=== PATIENT | male | born 1940 | race Caucasian/White ===

== ENCOUNTER 2019-05-04 22:43 | Inpatient (IN) | payer MEDICARE ==
[~2019-05-04] VITALS: Ht 172.7 cm; Wt 78.7 kg
[~2019-05-04 22:43] MED LIST: LISINOP/HCTZ1 TA1 PO; METFORMIN1000 MG PO; NORCO1 TA2 PO
--- NOTE | 2019-05-04 23:05 | NUR ---
RT CALLED FOR SUCTIONING OF TRACH.
[2019-05-05 00:36] LABS: HEMATOCRIT 37.4 % (39.0-50.0); IMMATURE GRANULOCYTES 0.5 % (0.0-5.0); MEAN CELL VOLUME 88.8 fL CALC (80.0-100.0); MEAN CORPUSCULAR HGB 28.5 pG CALC (26.0-32.0); MEAN CORPUSCULAR HGB CONC 32.1 g/L CALC (32.0-36.0); NEUT# 4.54 thou/uL (1.82-7.42); RED BLOOD COUNT 4.21 mill/uL (4.70-6.10); RED CELL DISTRI WIDTH 17.9 % (11.5-15.5)
[2019-05-05 00:36] LABS: URINE BILIRUBIN - DIPSTICK NEGATIVE (NEGATIVE); URINE BLOOD DIPSTICK LARGE (NEGATIVE); URINE GLUCOSE - DIPSTICK NEGATIVE (NEGATIVE); URINE KETONE TRACE mg/dL (NEGATIVE); URINE NITRITE - DIPSTICK NEGATIVE (Negative); URINE PROTEIN - DIPSTICK 30 mg/dL (NEG-TRACE); URINE UROBILINOGEN - DIPSTICK 0.2 E.U./dL (0.2)
[2019-05-05 00:38] LABS: BILIRUBIN, TOTAL 1.1 mg/dL (0.0-1.4); CREATININE 1.4 mg/dL (0.7-1.3); POTASSIUM 4.8 mmol/l (3.5-5.1); TOTAL PROTEIN 7.6 g/dL (6.3-8.2)
[2019-05-05 00:39] LABS: URINE COLOR DK. YELLOW; URINE EPITHELIAL CELLS FEW EPI/hpf (0-FEW); URINE LEUK ESTERASE MODERATE (NEGATIVE); URINE RBC 25-50 RBC/hpf (0-5)
[2019-05-05 00:40] LABS: URINE BACTERIA MODERATE hpf; URINE WBC 50-100 WBC/hpf (0-5)
--- NOTE | 2019-05-05 00:46 | NUR ---
AT BEDSIDE TO DISCUSS RESULTS WITH FAMILY
--- NOTE | 2019-05-05 01:51 | NUR ---
PT RESTING. FAMILY TO THE HOUSE. PT GIVEN MORE BLANKETS. LIGHTS DIMMED.
--- NOTE | 2019-05-05 02:28 | NUR ---
SPOKE WITH OVER THE PHONE AND DISCUSSED TRANSFERRING PT FOR MASS IN LUNG. STATES THAT PT DOESN'T WANT THAT DONE. . AND I TO BEDSIDE TO DISCUSS WITH PT ABOUT TRANSFER AND HE DECLINED. OK WITH ANTIBIOTICS AND FLUIDS BUT NOTHING INVASIVE. DOES NOT WANT CPR OR INTUBATION. DNR DISCUSSED WITH ATTENDING AND WILL BE SIGNED LATER TODAY.
--- NOTE | 2019-05-05 02:30 | NUR ---
PT PLACED ON O2 VIA TRACH COLLAR @ 2.5 LPM.
--- NOTE | 2019-05-05 02:45 | NUR ---
PT SIGNED DNR. PLACED ON CHART.
--- NOTE | 2019-05-05 03:21 | NUR ---
REPORT TO MEGAN, ER/ICU.
--- NOTE | 2019-05-05 03:22 | NUR ---
TO FLOOR VIA STRETCHER WITH TRACH COLLAR/O2/MONITOR AND ZITHROMAX INFUSING
[2019-05-05 03:38] VITALS: BP 147/88
--- NOTE | 2019-05-05 03:38 | NUR ---
88 yr old white male admitted to icu8 as medsurg tele overflow. transferred self to bed. bed weight obtained. o2 cont per trach collar. groundwater monitoring technician shows sinus rhythm. #20 rac. ns began as ordered. pull-up diaper on. history obtained per pt & er record. fall precautions initiated.
--- NOTE | 2019-05-05 03:45 | NUR ---
TO ICU/OVERFLOW. PT REMAINS A/O. RESP EASY ON O2/TRACH COLLAR.
--- NOTE | 2019-05-05 03:55 | NUR ---
RT CALLED TO TAKE HUMIDIFIED O2 EQUIP TO ICU FOR TRACH COLLAR.
--- NOTE | 2019-05-05 07:30 | NUR ---
PICTURES OBTAINED AND PLACED ON CHART FOR PERIRECTAL WOUND.
--- NOTE | 2019-05-05 07:30 | NUR ---
PT RESTING IN BED AWAKE. PT IS ALERT AND ORIENTED X3. SHIFT ASSESSMENT COMPLETED AT THIS TIME. IV PATETN X1. CALL LIGHT IN REACH. WILL CONTINUE TO MONITOR.
--- NOTE | 2019-05-05 07:42 | NUR ---
PT GIVEN AM CARE AND LINENS CHANGED AT THIS TIME. PT SET UP FOR AM MEAL AT THIS TIME WELL. CALL LIGHT IN REACH. WILL CONTINUE TO MONITOR.
[2019-05-05 09:00] VITALS: BP 133/79
--- NOTE | 2019-05-05 09:05 | NUR ---
RT AT BEDSIDE AT THIS TIME
--- NOTE | 2019-05-05 10:54 | NUR ---
DR PEPE AT BEDSIDE AT THIS TIME.
[2019-05-05] MEDS ORDERED: KEFLEX500 M1 PO (11:01)
--- NOTE | 2019-05-05 11:20 | NUR ---
DAUGHTER CALLED FOR TRANSPORT HOME. 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
--- NOTE | 2019-05-05 11:25 | NUR ---
PT SITTING UP IN BED WATCHING TV; D/C INSTRUCTIONS GIVEN ALONG WITH PRESCRIPTION; PT VERBALIZE UNDERSTANDING; IV REMOVED, CATH INTACT.
--- NOTE | 2019-05-05 11:49 | NUR ---
PT SET UP IN BED FOR NOON MEAL. VISITOR AT BEDSIDE AT THIS TIME. CALL LIGHT IN REACH. WILL CONTINUE TO MONITOR
--- NOTE | 2019-05-05 13:10 | NUR ---
Discharge instructions given. Patient verbalizes understanding of same. Discharged in .stable condition via Wheelchair to Home with family. All belongings sent with pt.
--- NOTE | 2019-05-06 10:46 | NUR ---
PREMILINARY BLOOD CULTURE FROM 05/05/19, GROWING GRAM POSITIVE COCCI CALLED TO PHYSICIAN. NO ANTIBIOTIC CHANGES AT THIS TIME.
== END 2019-05-05 13:10 | disposition home or self-care (01) | DRG 690 ==
LOC: ED 22:43 → ED-I 05-05 02:21 → ED 05-05 02:41 → ICU 05-05 02:42
PROVIDERS: Emergency Medicine; ADMIT Internal Medicine; ATTEND Internal Medicine
DX: N39.0 Urinary tract infection, site not specified (principal); C78.02 Secondary malignant neoplasm of left lung; J43.9 Emphysema, unspecified; I10 Essential (primary) hypertension; E11.9 Type 2 diabetes mellitus without complications; L89.159 Pressure ulcer of sacral region, unspecified stage; G89.29 Other chronic pain; Z66 Do not resuscitate; Z92.21 Personal history of antineoplastic chemotherapy; Z92.3 Personal history of irradiation; Z85.819 Personal history of malignant neoplasm of unspecified site of lip, oral cavity, and pharynx; Z93.0 Tracheostomy status